=== PATIENT | female | born 1975 | race Asian ===

== ENCOUNTER 2016-10-15 10:01 | Inpatient (IN) | payer SELFPAY ==
[~2016-10-15] VITALS: Ht 162 cm; Wt 68.9 kg
[2016-10-17] MEDS ORDERED: MISOPROSTOL 25 MCG TAB VG PRN (00:45)
[2016-10-17] MEDS ORDERED: METHYLERGONOVINE 0.2 MG/ML AMP IM PRN (00:45)
[2016-10-17] MEDS ORDERED: OXYTOCIN 10 UNITS/ML VIAL IM PRN (00:45)
[2016-10-17] MEDS ORDERED: OXYTOCIN 20 UNITS/LR PREMIX 1,000 ML IV PRN (00:45)
[2016-10-17] MEDS ORDERED: CARBOPROST 250 MCG/ML AMP IM PRN (00:45)
[2016-10-17] MEDS ORDERED: PROMETHAZINE 25 MG/ML VIAL IVP PRN (00:45)
[2016-10-17] MEDS ORDERED: NALBUPHINE 10 MG/ML AMP IVP PRN (00:45)
[2016-10-17 01:13] LABS: BASOPHILS # (AUTO) 0.1 K/uL (0.00-0.22); BASOPHILS % (AUTO) 0.7 % (0.0-2.0); EOSINOPHILS # (AUTO) 0.3 K/uL (0-0.4); EOSINOPHILS % (AUTO) 2.4 % (0.0-4.0); HEMATOCRIT 40.7 % (36-48); HEMOGLOBIN 13.5 g/dL (12.0-16.0); LYMPHOCYTES # (AUTO) 1.1 K/uL (2.5-16.5); MEAN CORPUSCULAR HEMOGLOBIN 32 pg (27-31); MEAN CORPUSCULAR HGB CONC 33 g/dL (33-37); MEAN CORPUSCULAR VOLUME 96 fL (80-94); MONOCYTES # (AUTO) 0.6 K/uL (0.8-1.0); MONOCYTES % (AUTO) 5.5 % (1.7-9.3); NEUTROPHILS # (AUTO) 9.3 K/uL (1.8-7.7); NEUTROPHILS % (AUTO) 81.4 % (42.2-75.2); PLATELET COUNT (AUTO) 217 K/uL (140-450); RED BLOOD CELL COUNT(AUTO) 4.24 MIL/uL (4.20-5.40); RED CELL DISTRIBUTION WIDTH 13.1 % (11.6-13.7); WHITE BLOOD COUNT (AUTO) 11.4 K/uL (4.8-10.8)
[2016-10-17] MEDS ORDERED: MISOPROSTOL 25 MCG TAB ONE ×3 (01:31→10:30)
[2016-10-17] MEDS ORDERED: AMPICILLIN 2,000 MG VIAL ONE (01:31)
[2016-10-17 01:33] LABS: ALBUMIN 2.9 g/dL (3.4-5.0); ANION GAP 14.2 (8-16); CARBON DIOXIDE 23.9 mmol/L (21-32); CREATININE 0.5 mg/dL (0.6-1.3); POTASSIUM 4.1 mmol/L (3.5-5.1); TOTAL BILIRUBIN 0.2 mg/dL (0.0-1.0)
[2016-10-17] MEDS ORDERED: AMPICILLIN 2,000 MG in NACL 0.9% 100 ML IV SCH (02:00)
[2016-10-17 02:03] VITALS: BP 96/68
[2016-10-17 03:09] LABS: APPEARANCE,URINE SLIGHTLY HAZY (CLEAR); BILIRUBIN,URINE NEGATIVE (NEGATIVE); BLOOD, URINE TRACE-I (NEGATIVE); COLOR,URINE YELLOW (YELLOW); LEUKOCYTE ESTERASE ,URINE NEGATIVE (NEGATIVE); NITRITE, URINE NEGATIVE (NEGATIVE); UGLUCOSE NEGATIVE (NEGATIVE)
[2016-10-17 03:16] LABS: RBC,URINE 0-5 (RARE) /HPF (0-5)
[2016-10-17 03:17] LABS: WBC,URINE 0-5 (RARE) /HPF (0-5)
[2016-10-17] MEDS ORDERED: AMPICILLIN 1,000 MG VIAL ONE ×5 (06:34→22:41)
[2016-10-17] MEDS: AMPICILLIN 1,000 MG in NACL 0.9% 50 ML IV SCH ×2 (06:37→22:30)
[2016-10-17] MEDS: LACTATED RINGERS 1,000 ML IV SCH ×2 (10:45→18:00)
--- NOTE | 2016-10-17 11:24 | NUR ---
PATIENT HAS BEEN SCREENED AND CATEGORIZED LOW NUTRITION RISK. PATIENT WILL BE SEEN WITHIN 7 DAYS OF ADMISSION. 10/23/[address]
[2016-10-17 13:34] LABS: RAPID PLASMA REAGIN NON-REACTIVE (Non Reactiv)
[2016-10-17] MEDS ORDERED: PROMETHAZINE 25 MG/ML VIAL ONE (13:44)
[2016-10-17] MEDS ORDERED: NALBUPHINE HYDROCHLORIDE 10 MG/ML VIAL ONE (13:44)
[2016-10-17] MEDS ORDERED: OXYTOCIN 20 UNITS/LR PREMIX 1,000 ML IV ONE (15:04)
[2016-10-17] MEDS ORDERED: ROPIVACAINE 0.2%/NS PREMIX 250 ML EPI ONE (15:53)
[2016-10-17] MEDS ORDERED: ROPIVACAINE 0.2%/NS PREMIX 250 ML EPI SCH (16:00)
[2016-10-18] MEDS ORDERED: OXYTOCIN 10 UNITS/ML VIAL ONE (00:42)
[2016-10-18] MEDS ORDERED: IBUPROFEN 800 MG TAB PO PRN ×2 (04:25)
[2016-10-18] MEDS ORDERED: TEMAZEPAM 15 MG CAP PO PRN ×2 (04:25)
[2016-10-18] MEDS ORDERED: HYDROcodone/APAP 5/325 MG 1 TAB TAB PO PRN ×2 (04:25)
[2016-10-18] MEDS ORDERED: METHYLERGONOVINE 0.2 MG/ML AMP IM PRN ×2 (04:25)
[2016-10-18] MEDS ORDERED: OXYTOCIN 10 UNITS/ML VIAL IM PRN ×2 (04:25)
[2016-10-18] MEDS ORDERED: BENZOCAINE/MENTHOL 20%-0.5% 60 GM CAN TP PRN ×2 (04:25)
[2016-10-18] MEDS ORDERED: MEASLES, MUMPS, AND RUBELLA 1 VIAL SQVAC PRN ×2 (04:25)
[2016-10-18] MEDS ORDERED: oxyCODONE/APAP 5/325 MG 1 TAB TAB PO PRN ×2 (04:25)
[2016-10-18 18:35] LABS: HEPATITIS B SURFACE AB REACTIVE (NONREACTIVE)
[2016-10-18] MEDS ORDERED: DOCUSATE SOD/SENNA 50/8.6 MG 1 TAB PO SCH ×2 (21:00)
[2016-10-19 05:52] LABS: HEMATOCRIT 35.4 % (36-48); HEMOGLOBIN 11.9 g/dL (12.0-16.0)
== END 2016-10-19 23:50 | disposition home or self-care (01) | DRG 775 ==
LOC: MLD 10-17 00:01 → MFCC 10-18 04:08
PROVIDERS: ADMIT Obstetrics & Gynecology; ATTEND Obstetrics & Gynecology
PROC: 10E0XZZ Delivery of Products of Conception, External Approach (ICD-10-PCS; principal; 2016-10-18)
PROC: 10907ZC Drainage of Amniotic Fluid, Therapeutic from Products of Conception, Via Natural or Artificial Opening (ICD-10-PCS; 2016-10-18)
PROC: 0W8NXZZ Division of Female Perineum, External Approach (ICD-10-PCS; 2016-10-18)
PROC: 00HU33Z Insertion of Infusion Device into Spinal Canal, Percutaneous Approach (ICD-10-PCS; 2016-10-18)
PROC: 3E0R3CZ (ICD-10-PCS; 2016-10-18)
PROC: 3E0234Z Introduction of Serum, Toxoid and Vaccine into Muscle, Percutaneous Approach (ICD-10-PCS; 2016-10-19)
DX: O80 Encounter for full-term uncomplicated delivery (principal); Z23 Encounter for immunization; Z37.0 Single live birth; Z3A.40 40 weeks gestation of pregnancy
CPT/HCPCS: 36415; 80053; 81001; 85018; 85025; 86592; 86706; 86762; 86886; 86900; 86901; 87653-90; 90715; J0290; J2300; J2550; J2590; J2795; J7120